=== PATIENT | male | born 1970 | race Caucasian/White ===

== ENCOUNTER 2018-05-24 12:07 | Emergency (ER) | payer MEDICAID, OTHER ==
[2018-05-24] MEDS: CEPHALEXIN 500 MG CAP PO (12:51)
[2018-05-24] MEDS: IBUPROFEN 600 MG TAB PO (12:51)
== END 2018-05-24 13:01 | disposition home or self-care (01) ==
LOC: FTE 12:07
DX: K08.89 Other specified disorders of teeth and supporting structures (principal)
CPT/HCPCS: 99283; Z7502